=== PATIENT | female | born 1945 | race Caucasian/White ===

== ENCOUNTER 2017-10-06 07:06 | Day surgery (SDC) | payer MEDICARE ==
[2017-10-06] MEDS ORDERED: Lactated Ringer's 500 ML IV ONE (07:56)
[2017-10-06] MEDS ORDERED: Propofol 10 mg/ml Inj (20 ML) ONE (09:23)
[2017-10-06 09:51] VITALS: TEMP 97.5; O2SAT 100
[2017-10-06 09:55] VITALS: BP 113/76; PULSE 57; RESP 12
== END 2017-10-06 10:31 | disposition home or self-care (01) ==
LOC: H.ENDO 07:06
PROVIDERS: ATTEND Internal Medicine Gastroenterology
DX: K30 Functional dyspepsia (principal); K31.9 Disease of stomach and duodenum, unspecified; J45.909 Unspecified asthma, uncomplicated; R05 Cough; K29.50 Unspecified chronic gastritis without bleeding
CPT/HCPCS: 43239; 88305; J2001; J2704; J7120